=== PATIENT | male | born 1935 | race Caucasian/White ===

== ENCOUNTER 2022-02-25 10:26 | Emergency (ER) | payer MEDICARE, OTHER ==
[2022-02-25] MEDS ORDERED: Diphtheria,Pertussis(Acell),Tetanus Vaccine 0.5 ML Syringe IM ONE (11:25)
[2022-02-25] MEDS ORDERED: Bacitracin/Neomycin/Polymyxin B Oint 0.9 GM U/D Packet ONE (11:29)
[2022-02-25] MEDS ORDERED: Bacitracin/Neomycin/Polymyxin B Oint 28.4 GM Tube TOP ONE (11:33)
[2022-02-25 12:28] VITALS: BP 140/66; PULSE 80
== END 2022-02-25 12:47 ==
LOC: KA.ED 10:26
DX: S01.01XA Laceration without foreign body of scalp, initial encounter (principal); I48.91 Unspecified atrial fibrillation; E78.00 Pure hypercholesterolemia, unspecified; I10 Essential (primary) hypertension; E11.9 Type 2 diabetes mellitus without complications; Z23 Encounter for immunization; Z88.1 Allergy status to other antibiotic agents; Z79.899 Other long term (current) drug therapy; Z79.84 Long term (current) use of oral hypoglycemic drugs; Z79.01 Long term (current) use of anticoagulants; W18.30XA Fall on same level, unspecified, initial encounter; Y92.129 Unspecified place in nursing home as the place of occurrence of the external cause
CPT/HCPCS: 12002; 70450; 72125; 90471; 90715; 99284-25

== ENCOUNTER 2022-06-17 08:28 | Inpatient (IN) | payer MEDICARE, OTHER ==
[2022-06-17] MEDS ORDERED: Sodium Chloride 0.9% 10 ML Syringe FLUSH PRN (08:33)
[2022-06-17 09:10] LABS: ANION GAP 11.4 mmol/L (5-15); CHLORIDE,CL 104 mmol/L (98-107); SODIUM,NA 142 mmol/L (136-145)
[2022-06-17 09:12] LABS: ESTIMATED GFR 70 mL/min (>=60)
[2022-06-17 09:41] LABS: RESPIRATORY SYNCYTIAL VIR NAA NEGATIVE (NEGATIVE)
[2022-06-17 09:43] LABS: CORONAVIRUS COVID-19 NAA NEGATIVE (NEGATIVE)
[2022-06-17] MEDS ORDERED: cefTRIAXone 2 GM Vial IVPUSH ONE (09:51)
[2022-06-17] MEDS ORDERED: Sodium Chloride 0.9% 1,000 ML IV ONE (10:17)
[2022-06-17] MEDS ORDERED: atorvaSTATin 40 MG Tab PO ONE (12:21)
[2022-06-17] MEDS ORDERED: Aspirin 325 MG Tab.EC PO ONE (12:23)
[2022-06-17] MEDS ORDERED: Aspirin 81 MG Tab.EC PO SCH (12:30)
[2022-06-17] MEDS: Escitalopram 10 MG Tab PO SCH (12:38)
[2022-06-17] MEDS: Bumetanide 1 MG Tab PO SCH ×2 (12:38→12:42)
[2022-06-17] MEDS: Tamsulosin 0.4 MG Cap.ER PO SCH (12:38)
[2022-06-17] MEDS: Memantine 10 MG Tab PO SCH ×2 (12:40→21:32)
[2022-06-17] MEDS: Carvedilol 12.5 MG Tab PO SCH ×3 (12:40→21:34)
[2022-06-17] MEDS: Isosorbide Mononitrate 30 MG Tab.ER PO SCH (12:42)
[2022-06-17] MEDS: Trospium 20 MG Tab PO SCH ×2 (12:48→21:32)
[2022-06-17] MEDS: Fluticasone NASAL Spray 16 GM Bottle NASBOTH SCH ×2 (12:48→21:33)
[2022-06-17] MEDS: Acetaminophen 325 MG Tab PO SCH ×2 (13:04→21:32)
[2022-06-17] MEDS ORDERED: Sodium Chloride 0.9% 1,000 ML IV SCH (13:15)
[2022-06-17] MEDS ORDERED: 50% Dextrose in Water 50 ML Syringe IVPUSH PRN (13:34)
[2022-06-17] MEDS ORDERED: Glucagon,Human Recombinant 1 MG Vial IM PRN (13:34)
[2022-06-17] MEDS ORDERED: Clopidogrel 75 MG Tab PO ONE (13:47)
[2022-06-17] MEDS: Insulin Lispro 100 Unit/ML 3 ML KwikPen SUBCUT SCH ×2 (13:59→17:55)
[2022-06-17] MEDS ORDERED: Heparin Sodium/D5W 250 ML IV SCH (14:00)
[2022-06-17] MEDS ORDERED: Heparin Sodium 5,000 Units/ML Vial IV ONE (14:15)
[2022-06-17] MEDS ORDERED: Warfarin 5 MG Tab PO SCH (18:00)
[2022-06-17] MEDS ORDERED: Sodium Chloride 0.9% 500 ML IV ONE (20:32)
[2022-06-17] MEDS: Donepezil 10 MG Tab PO SCH (21:32)
[2022-06-17] MEDS: ceFAZolin 2 GM in Sodium Chloride 0.9% 100 ML IV SCH (21:42)
[2022-06-18] MEDS ORDERED: Sodium Chloride 0.9% 100 ML IV SCH (03:30)
[2022-06-18] MEDS: ceFAZolin 2 GM in Sodium Chloride 0.9% 100 ML IV SCH ×3 (05:16→21:28)
[2022-06-18] MEDS ORDERED: Heparin Sodium 5,000 Units/ML Vial IVPUSH ONE (07:48)
[2022-06-18 08:02] LABS: ANION GAP 6.2 mmol/L (5-15)
[2022-06-18] MEDS: Insulin Lispro 100 Unit/ML 3 ML KwikPen SUBCUT SCH ×3 (08:26→18:07)
[2022-06-18] MEDS ORDERED: Clopidogrel 75 MG Tab PO SCH (09:00)
[2022-06-18] MEDS: Tamsulosin 0.4 MG Cap.ER PO SCH (09:16)
[2022-06-18] MEDS: Escitalopram 10 MG Tab PO SCH (09:17)
[2022-06-18] MEDS: Trospium 20 MG Tab PO SCH ×2 (09:17→21:34)
[2022-06-18] MEDS: Memantine 10 MG Tab PO SCH ×2 (09:18→21:34)
[2022-06-18] MEDS: Aspirin 81 MG Tab.EC PO SCH (09:18)
[2022-06-18] MEDS: Acetaminophen 325 MG Tab PO SCH ×3 (09:18→21:33)
[2022-06-18] MEDS: Carvedilol 12.5 MG Tab PO SCH ×2 (09:26→21:34)
[2022-06-18] MEDS: Isosorbide Mononitrate 30 MG Tab.ER PO SCH (09:27)
[2022-06-18] MEDS: Fluticasone NASAL Spray 16 GM Bottle NASBOTH SCH ×2 (09:31→21:35)
[2022-06-18] MEDS ORDERED: Non-Formulary Medication 1 Each (Potassium Gluconate [Potassium Gluconate] 99 MG Tablet) PO SCH (11:00)
[2022-06-18] MEDS: Potassium Chloride 10 MEQ Tab.ER PO SCH (12:46)
[2022-06-18] MEDS ORDERED: Sodium Chloride 0.65% Nasal Spray 45 ML Bottle NASBOTH PRN (16:33)
[2022-06-18] MEDS ORDERED: Warfarin 5 MG Tab PO SCH (18:00)
[2022-06-18] MEDS ORDERED: Simvastatin 20 MG Tab PO SCH (21:00)
[2022-06-18] MEDS: Bumetanide 1 MG Tab PO SCH (21:34)
[2022-06-18] MEDS: Donepezil 10 MG Tab PO SCH (21:34)
[2022-06-19] MEDS: ceFAZolin 2 GM in Sodium Chloride 0.9% 100 ML IV SCH (05:58)
[2022-06-19 07:39] LABS: ANION GAP 8.6 mmol/L (5-15)
[2022-06-19] MEDS: Insulin Lispro 100 Unit/ML 3 ML KwikPen SUBCUT SCH ×2 (08:35→11:55)
[2022-06-19] MEDS: Aspirin 81 MG Tab.EC PO SCH (09:48)
[2022-06-19] MEDS: Bumetanide 1 MG Tab PO SCH (09:48)
[2022-06-19] MEDS: Trospium 20 MG Tab PO SCH (09:48)
[2022-06-19] MEDS: Tamsulosin 0.4 MG Cap.ER PO SCH (09:49)
[2022-06-19] MEDS: Potassium Chloride 10 MEQ Tab.ER PO SCH (09:49)
[2022-06-19] MEDS: Carvedilol 12.5 MG Tab PO SCH (09:49)
[2022-06-19] MEDS: Acetaminophen 325 MG Tab PO SCH (09:49)
[2022-06-19] MEDS: Fluticasone NASAL Spray 16 GM Bottle NASBOTH SCH (09:50)
[2022-06-19] MEDS: Isosorbide Mononitrate 30 MG Tab.ER PO SCH (09:50)
[2022-06-19] MEDS: Memantine 10 MG Tab PO SCH (09:50)
[2022-06-19] MEDS: Escitalopram 10 MG Tab PO SCH (09:50)
[2022-06-19] MEDS ORDERED: Lisinopril 20 MG Tab PO SCH (10:30)
[2022-06-19] MEDS ORDERED: Bumetanide 1 MG Tab PO ONE (10:42)
[2022-06-19] MEDS ORDERED: Potassium Chloride 10 MEQ Tab.ER PO ONE (10:43)
[2022-06-19 11:44] VITALS: BP 171/84; PULSE 91
[2022-06-19] MEDS ORDERED: Warfarin 2.5 MG Tab PO SCH ×2 (18:00)
== END 2022-06-19 12:58 | DRG 872 ==
LOC: KA.ED 08:28 → KA.MS 10:31 → OBSVTOIN 12:29
PROVIDERS: ADMIT Student in an Organized Health Care Education/Training Program; ATTEND Student in an Organized Health Care Education/Training Program
DX: R53.1 Weakness (principal); A41.89 Other specified sepsis; I48.19 Other persistent atrial fibrillation; Z66 Do not resuscitate; Z20.822 Contact with and (suspected) exposure to COVID-19; E78.00 Pure hypercholesterolemia, unspecified; E11.9 Type 2 diabetes mellitus without complications; I10 Essential (primary) hypertension; Z79.84 Long term (current) use of oral hypoglycemic drugs; Z88.8 Allergy status to other drugs, medicaments and biological substances; Z79.899 Other long term (current) drug therapy; W19.XXXA Unspecified fall, initial encounter; Z79.82 Long term (current) use of aspirin; Z95.5 Presence of coronary angioplasty implant and graft; Z79.01 Long term (current) use of anticoagulants
CPT/HCPCS: 0241U; 36415; 70450; 71045; 80053; 81001; 82947; 83605; 83735; 83880; 84484; 85025; 85610; 85730; 87040; 87186; 93010; 96361; 96374; 99284; 99285-25; A9270-GY; J0690; J0696; J1644; J1815-GY; J3490; J7030; J7040

== ENCOUNTER 2022-08-19 19:13 | Emergency (ER) | payer MEDICARE, OTHER ==
[2022-08-19] MEDS ORDERED: Acetaminophen 500 MG Tab ONE (19:34)
[2022-08-19] MEDS ORDERED: Acetaminophen 500 MG Tab PO ONE (19:36)
[2022-08-19 20:06] LABS: BASOPHILS ABSOLUTE AUTO 0.02 10^3/uL (0.00-0.10); BASOPHILS PERCENT AUTO 0.2 % (0.0-1.0); EOSINOPHILS ABSOLUTE AUTO 0.04 10^3/uL (0.10-0.30); EOSINOPHILS PERCENT AUTO 0.4 % (1.0-3.0); HEMATOCRIT 33.4 % (40.0-52.0); IMMATURE GRAN ABSOLUTE AUTO 0.02 10^3/uL (0.00-0.50); IMMATURE GRAN PERCENT AUTO 0.2 % (0.0-5.0); LYMPHOCYTES ABSOLUTE AUTO 0.36 10^3/uL (1.00-4.00); LYMPHOCYTES PERCENT AUTO 3.7 % (20.0-40.0); MEAN CORPUSCULAR HEMOGLOBIN 32.9 pg (27.0-31.0); MEAN CORPUSCULAR HGB CONC 32.9 g/dL (32.0-36.0); MEAN PLATELET VOLUME 10.1 fL (7.4-10.4); MONOCYTES ABSOLUTE AUTO 0.78 10^3/uL (0.10-0.80); NEUTROPHILS ABSOLUTE AUTO 8.51 10^3/uL (2.50-7.00); NEUTROPHILS PERCENT AUTO 87.5 % (50.0-70.0); PLATELET COUNT,PLT 136 10^3/uL (150-400); RED BLOOD CELL COUNT 3.34 10^6/uL (4.50-6.00); RED CELL DISTRIBUTION WIDTH 13.1 % (11.5-14.5); WHITE BLOOD CELL COUNT,WBC 9.73 10^3/uL (5.00-10.00)
[2022-08-19 20:10] LABS: APPEARANCE,URINE CLOUDY (CLEAR); BILIRUBIN,URINE NEGATIVE (NEGATIVE); COLOR,URINE YELLOW (YELLOW); GLUCOSE,URINE NEGATIVE (NEGATIVE); KETONES,URINE NEGATIVE (NEGATIVE); LEUKOCYTE ESTERASE,URINE MODERATE (NEGATIVE); NITRITE,URINE POSITIVE (NEGATIVE); OCCULT BLOOD,URINE LARGE (NEGATIVE); PH,URINE 5.5 (5.0-9.0); PROTEIN,URINE >=300 mg/dL (NEGATIVE); UROBILINOGEN,URINE 0.2 E.U./dL (0.2-1.0)
[2022-08-19 20:14] LABS: WBC,URINE 75-100 /HPF (0-5)
[2022-08-19 20:15] LABS: BACTERIA,URINE RARE /HPF (NONE TO FEW); EPITHELIAL CELLS,URINE OCCASIONAL /LPF
[2022-08-19 20:22] LABS: ANION GAP 11.8 mmol/L (5-15); BLOOD UREA NITROGEN,BUN 36 mg/dL (7-18); CALCIUM 8.9 mg/dL (8.7-10.3); CARBON DIOXIDE,CO2 30.7 mmol/L (21.0-32.0); CHLORIDE,CL 106 mmol/L (98-107); CREATININE 1.48 mg/dL (0.51-1.17); ESTIMATED GFR 46 mL/min (>=60); GLUCOSE RANDOM 167 mg/dL (70-140); POTASSIUM,K 3.5 mmol/L (3.5-5.1); SODIUM,NA 145 mmol/L (136-145)
[2022-08-19 20:33] VITALS: BP 127/56; PULSE 108
[2022-08-19] MEDS ORDERED: Ciprofloxacin 500 MG Tab PO ONE (21:15)
== END 2022-08-19 21:30 ==
LOC: KA.ED 19:13 → EEVIPCON 19:13 → KA.ED 21:30
DX: N30.01 Acute cystitis with hematuria (principal); I48.91 Unspecified atrial fibrillation; E78.00 Pure hypercholesterolemia, unspecified; I10 Essential (primary) hypertension; E11.9 Type 2 diabetes mellitus without complications; Z79.899 Other long term (current) drug therapy; Z79.82 Long term (current) use of aspirin; Z79.84 Long term (current) use of oral hypoglycemic drugs
CPT/HCPCS: 36415; 80048; 81001; 83605; 85025; 87086; 87088; 87186; 93005; 93010; 99284; 99285; A9270-GY

== ENCOUNTER 2023-04-30 10:30 | Emergency (ER) | payer MEDICARE, OTHER, MEDICAID ==
[2023-04-30] MEDS ORDERED: Sodium Chloride 0.9% 10 ML Syringe FLUSH PRN (10:41)
[2023-04-30 10:48] LABS: BASOPHILS ABSOLUTE AUTO 0.02 10^3/uL (0.00-0.10); BASOPHILS PERCENT AUTO 0.2 % (0.0-1.0); EOSINOPHILS ABSOLUTE AUTO 0.17 10^3/uL (0.10-0.30); EOSINOPHILS PERCENT AUTO 1.9 % (1.0-3.0); HEMATOCRIT 36.4 % (40.0-52.0); HEMOGLOBIN 11.8 g/dL (13.0-17.0); IMMATURE GRAN ABSOLUTE AUTO 0.01 10^3/uL (0.00-0.50); IMMATURE GRAN PERCENT AUTO 0.1 % (0.0-5.0); LYMPHOCYTES ABSOLUTE AUTO 0.78 10^3/uL (1.00-4.00); LYMPHOCYTES PERCENT AUTO 8.9 % (20.0-40.0); MEAN CORPUSCULAR HEMOGLOBIN 33.3 pg (27.0-31.0); MEAN CORPUSCULAR HGB CONC 32.4 g/dL (32.0-36.0); MEAN CORPUSCULAR VOLUME 102.8 fL (82.0-92.0); MEAN PLATELET VOLUME 10.1 fL (7.4-10.4); MONOCYTES ABSOLUTE AUTO 0.63 10^3/uL (0.10-0.80); MONOCYTES PERCENT AUTO 7.2 % (2.0-8.0); NEUTROPHILS ABSOLUTE AUTO 7.12 10^3/uL (2.50-7.00); NEUTROPHILS PERCENT AUTO 81.7 % (50.0-70.0); PLATELET COUNT,PLT 184 10^3/uL (150-400); RED BLOOD CELL COUNT 3.54 10^6/uL (4.50-6.00); RED CELL DISTRIBUTION WIDTH 13.5 % (11.5-14.5); WHITE BLOOD CELL COUNT,WBC 8.73 10^3/uL (5.00-10.00)
[2023-04-30 11:07] LABS: ALANINE AMINOTRANSFERASE,ALT 13 U/L (14-63); ALBUMIN 3.59 g/dL (3.40-5.00); ALKALINE PHOSPHATASE 46 U/L (46-116); ANION GAP 13.9 mmol/L (5-15); ASPARTATE AMNIOTRANSFERASE,AST 24 U/L (15-37); BILIRUBIN TOTAL 0.9 mg/dL (0.2-1.0); BLOOD UREA NITROGEN,BUN 33 mg/dL (7-18); CALCIUM 8.9 mg/dL (8.7-10.3); CARBON DIOXIDE,CO2 30.7 mmol/L (21.0-32.0); CHLORIDE,CL 103 mmol/L (98-107); CREATININE 1.33 mg/dL (0.51-1.17); GLUCOSE RANDOM 220 mg/dL (70-140); LIPASE 41 U/L (16-77); POTASSIUM,K 3.6 mmol/L (3.5-5.1); SODIUM,NA 144 mmol/L (136-145)
[2023-04-30 11:10] LABS: C-REACTIVE PROTEIN < 0.50 mg/dL (0.00-0.50); ESTIMATED GFR 52 mL/min (>=60)
[2023-04-30 11:29] VITALS: BP 172/70; PULSE 83
[2023-04-30 11:32] LABS: B-TYPE NATRIURETIC PEPTIDE,BNP 278 pg/mL (0-100)
== END 2023-04-30 13:50 ==
LOC: KA.ED 10:30
DX: I48.11 Longstanding persistent atrial fibrillation (principal); R77.8 Other specified abnormalities of plasma proteins; I11.0 Hypertensive heart disease with heart failure; I50.9 Heart failure, unspecified; I25.10 Atherosclerotic heart disease of native coronary artery without angina pectoris; E11.9 Type 2 diabetes mellitus without complications; E78.00 Pure hypercholesterolemia, unspecified; E66.9 Obesity, unspecified; Z68.32 Body mass index [BMI] 32.0-32.9, adult; Z79.899 Other long term (current) drug therapy; Z79.82 Long term (current) use of aspirin; Z79.01 Long term (current) use of anticoagulants; Z79.84 Long term (current) use of oral hypoglycemic drugs; Z88.8 Allergy status to other drugs, medicaments and biological substances
CPT/HCPCS: 36415; 71045; 80053; 83605; 83690; 83880; 84484; 85025; 85379; 86140; 87040; 93005; 93010; 99284; 99285

== ENCOUNTER 2023-05-20 11:24 | Emergency (ER) | payer MEDICARE, OTHER ==
[2023-05-20 11:42] LABS: BASOPHILS ABSOLUTE AUTO 0.02 10^3/uL (0.00-0.10); BASOPHILS PERCENT AUTO 0.3 % (0.0-1.0); EOSINOPHILS ABSOLUTE AUTO 0.17 10^3/uL (0.10-0.30); EOSINOPHILS PERCENT AUTO 2.3 % (1.0-3.0); HEMATOCRIT 36.9 % (40.0-52.0); HEMOGLOBIN 11.9 g/dL (13.0-17.0); IMMATURE GRAN ABSOLUTE AUTO 0.01 10^3/uL (0.00-0.50); IMMATURE GRAN PERCENT AUTO 0.1 % (0.0-5.0); LYMPHOCYTES ABSOLUTE AUTO 0.88 10^3/uL (1.00-4.00); LYMPHOCYTES PERCENT AUTO 11.9 % (20.0-40.0); MEAN CORPUSCULAR HEMOGLOBIN 33.3 pg (27.0-31.0); MEAN CORPUSCULAR HGB CONC 32.2 g/dL (32.0-36.0); MEAN CORPUSCULAR VOLUME 103.4 fL (82.0-92.0); MEAN PLATELET VOLUME 10.1 fL (7.4-10.4); MONOCYTES ABSOLUTE AUTO 0.62 10^3/uL (0.10-0.80); MONOCYTES PERCENT AUTO 8.4 % (2.0-8.0); PLATELET COUNT,PLT 178 10^3/uL (150-400); RED BLOOD CELL COUNT 3.57 10^6/uL (4.50-6.00); RED CELL DISTRIBUTION WIDTH 12.8 % (11.5-14.5)
[2023-05-20 12:00] LABS: INR 2.2 (0.9-1.1); PROTHROMBIN TIME 23.1 SEC (9.3-12.2)
[2023-05-20 12:04] LABS: ALBUMIN 3.81 g/dL (3.40-5.00); ANION GAP 10.9 mmol/L (5-15); BILIRUBIN TOTAL 0.8 mg/dL (0.2-1.0); CALCIUM 9.1 mg/dL (8.7-10.3); CARBON DIOXIDE,CO2 32.9 mmol/L (21.0-32.0); CREATININE 1.43 mg/dL (0.51-1.17); EST CRCL DRUG DOSING (CG) 36.54 mL/min; POTASSIUM,K 3.8 mmol/L (3.5-5.1)
[2023-05-20] MEDS: Aspirin 81 MG Tab.Chew PO ONE (12:25)
[2023-05-20 13:30] VITALS: BP 138/60; PULSE 68
== END 2023-05-20 13:30 ==
LOC: KA.ED 11:24
DX: R07.9 Chest pain, unspecified (principal); R79.89 Other specified abnormal findings of blood chemistry; I11.0 Hypertensive heart disease with heart failure; I50.9 Heart failure, unspecified; E78.00 Pure hypercholesterolemia, unspecified; E11.9 Type 2 diabetes mellitus without complications; E66.9 Obesity, unspecified; Z95.5 Presence of coronary angioplasty implant and graft; Z79.82 Long term (current) use of aspirin; Z79.899 Other long term (current) drug therapy; Z79.01 Long term (current) use of anticoagulants; Z79.84 Long term (current) use of oral hypoglycemic drugs; Z88.8 Allergy status to other drugs, medicaments and biological substances; Z68.35 Body mass index [BMI] 35.0-35.9, adult
CPT/HCPCS: 71045; 80053; 84484; 85025; 85610; 93010; 99284; 99285; A9270-GY

== ENCOUNTER 2023-08-16 16:09 | Emergency (ER) | payer MEDICARE, OTHER ==
[2023-08-16] MEDS ORDERED: Sodium Chloride 0.9% 10 ML Syringe FLUSH PRN (16:28)
[2023-08-16 17:06] LABS: BASOPHILS ABSOLUTE AUTO 0.02 10^3/uL (0.00-0.10); BASOPHILS PERCENT AUTO 0.4 % (0.0-1.0); EOSINOPHILS ABSOLUTE AUTO 0.19 10^3/uL (0.10-0.30); EOSINOPHILS PERCENT AUTO 3.6 % (1.0-3.0); HEMATOCRIT 28.3 % (40.0-52.0); HEMOGLOBIN 9.3 g/dL (13.0-17.0); LYMPHOCYTES ABSOLUTE AUTO 1.11 10^3/uL (1.00-4.00); LYMPHOCYTES PERCENT AUTO 21.1 % (20.0-40.0); MEAN CORPUSCULAR HEMOGLOBIN 34.2 pg (27.0-31.0); MEAN CORPUSCULAR HGB CONC 32.9 g/dL (32.0-36.0); MEAN PLATELET VOLUME 10.2 fL (7.4-10.4); MONOCYTES ABSOLUTE AUTO 0.74 10^3/uL (0.10-0.80); MONOCYTES PERCENT AUTO 14.1 % (2.0-8.0); NEUTROPHILS ABSOLUTE AUTO 3.19 10^3/uL (2.50-7.00); NEUTROPHILS PERCENT AUTO 60.8 % (50.0-70.0); PLATELET COUNT,PLT 200 10^3/uL (150-400); RED BLOOD CELL COUNT 2.72 10^6/uL (4.50-6.00); RED CELL DISTRIBUTION WIDTH 15.2 % (11.5-14.5); WHITE BLOOD CELL COUNT,WBC 5.25 10^3/uL (5.00-10.00)
[2023-08-16 17:17] LABS: ALBUMIN 3.03 g/dL (3.40-5.00); ANION GAP 13.5 mmol/L (5-15); CALCIUM 8.7 mg/dL (8.7-10.3); CARBON DIOXIDE,CO2 28.4 mmol/L (21.0-32.0); CREATININE 1.6 mg/dL (0.51-1.17); EST CRCL DRUG DOSING (CG) 34.22 mL/min; POTASSIUM,K 3.9 mmol/L (3.5-5.1); PROTEIN TOTAL,TP 6.2 g/dL (6.4-8.2)
[2023-08-16 17:38] LABS: APPEARANCE,URINE CLEAR (CLEAR); BILIRUBIN,URINE NEGATIVE (NEGATIVE); COLOR,URINE YELLOW (YELLOW); GLUCOSE,URINE NEGATIVE (NEGATIVE); KETONES,URINE NEGATIVE (NEGATIVE); LEUKOCYTE ESTERASE,URINE NEGATIVE (NEGATIVE); NITRITE,URINE NEGATIVE (NEGATIVE); OCCULT BLOOD,URINE NEGATIVE (NEGATIVE); PH,URINE 5.5 (5.0-9.0); PROTEIN,URINE NEGATIVE (NEGATIVE); UROBILINOGEN,URINE 0.2 E.U./dL (0.2-1.0)
[2023-08-16 17:52] LABS: AMPHETAMINES SCREEN, URINE NEGATIVE (NEGATIVE); BARBITURATE SCREEN,URINE NEGATIVE (NEGATIVE); BENZODIAZEPINES SCREEN,URINE NEGATIVE (NEGATIVE); COCAINE METABOLITES,URINE NEGATIVE (NEGATIVE); METHADONE SCREEN, URINE NEGATIVE (NEGATIVE); METHAMPHETAMINES SCREEN, URINE NEGATIVE (NEGATIVE); OXYCODONE SCREEN,URINE NEGATIVE (NEGATIVE); PCP SCREEN,URINE NEGATIVE (NEGATIVE); TCA SCREEN,URINE NEGATIVE (NEGATIVE); THC SCREEN,URINE 50 NG/ML NEGATIVE (NEGATIVE)
[2023-08-16 19:45] VITALS: BP 109/64; PULSE 86
== END 2023-08-16 19:35 ==
LOC: KA.ED 16:09
DX: G30.9 Alzheimer's disease, unspecified (principal); F02.C2 Dementia in other diseases classified elsewhere, severe, with psychotic disturbance; D64.9 Anemia, unspecified; N18.9 Chronic kidney disease, unspecified; N17.9 Acute kidney failure, unspecified; R91.8 Other nonspecific abnormal finding of lung field; I48.91 Unspecified atrial fibrillation; I25.10 Atherosclerotic heart disease of native coronary artery without angina pectoris; E11.9 Type 2 diabetes mellitus without complications; E66.9 Obesity, unspecified; Z88.8 Allergy status to other drugs, medicaments and biological substances; Z79.899 Other long term (current) drug therapy; Z79.82 Long term (current) use of aspirin; Z79.01 Long term (current) use of anticoagulants; Z95.5 Presence of coronary angioplasty implant and graft; Z89.411 Acquired absence of right great toe; Z86.19 Personal history of other infectious and parasitic diseases; Z68.33 Body mass index [BMI] 33.0-33.9, adult
CPT/HCPCS: 36415; 71045; 80053; 80305-QW; 81003; 85025; 87040; 99285